=== PATIENT | female | born 1990 | race Caucasian/White ===

== ENCOUNTER 2017-07-16 16:04 | Emergency (ER) | payer OTHER ==
[2017-07-16 16:12] VITALS: BP 138/94; PULSE 92; RESP 16; TEMP 98.2
--- NOTE | 2017-07-16 17:55 | US ---
EXAMINATION TYPE: US venous doppler duplex LE RT DATE OF EXAM: 07/16/2017 5:32 PM COMPARISON: NONE CLINICAL HISTORY: Pain. Lump posterior right thigh. SIDE PERFORMED: Right TECHNIQUE: The lower extremity deep venous system is examined utilizing real time linear array sonog jennifer with graded compression, doppler sonography and color-flow sonography. VESSELS IMAGED: External Iliac Vein (EIV) Common Femoral Vein Deep Femoral Vein Greater Saphenous Vein * Femoral Vein Popliteal Vein Small Saphenous Vein * Proximal Calf Veins (* superficial vessels) Right Leg: Negative for DVT No evidence of DVT right leg. No abnormalities seen posterior right thigh area of lump. IMPRESSION: 1. Right lower extremities negative for deep venous thrombosis by ultrasound.
--- NOTE | 2017-07-16 17:57 | ED ---
General Adult HPI - General Chief complaint: Skin/Abscess/Foreign Body Stated complaint: Lump on Leg/Numbess/Redness Time Seen by Provider: 07/16/17 16:54 Source: patient Mode of arrival: ambulatory Limitations: no limitations - History of Present Illness Initial comments: 26-year-old female patient presents to the emergency department today for evaluation of tingling in her right leg and toes as well as a "lump" to her posterior thigh. Patient states that she felt a lump there for the last few days. States that today she started having tingling down her leg so she became concerned. She denies any numbness or weakness to the leg. She states that she does have some chronic low back pain but there have been no changes. She denies any saddle anesthesia or loss of bowel or bladder control. She denies any pain at the area of the lump. Denies any redness or swelling. She denies any use of control or recent travel. She denies any chest pain, palpitations, or shortness of breath. Patient denies any recent rash, fever, chills, chest pain, abdominal pain, nausea, vomiting, diarrhea, constipation, back pain, numbness, tingling, dizziness, weakness, hematuria, dysuria, urinary urgency, urinary frequency, headache, visual changes, or any other complaints. - Related Data Home Medications Medication Instructions Recorded Confirmed Albuterol Inhaler [Ventolin Hfa 1 - 2 puff INHALATION Q6HR PRN 07/05/15 08/17/15 Inhaler] Pnv,Calcium 72/Iron/Folic Acid 1 tab PO DAILY 07/29/15 08/17/15 [ Plus Tablet] Previous Rx's Medication Instructions Recorded Acetaminophen-Codeine 300-30mg 1 each PO Q4HR PRN #30 tab 08/19/15 [Tylenol w/codeine #3] Ibuprofen [Motrin] 600 mg PO Q6HR PRN #60 tab 08/19/15 Allergies Allergy/AdvReac Type Severity Reaction Status Date / Time No Known Allergies Allergy Verified 07/16/17 16:12 Review of Systems ROS Statement: Those systems with pertinent positive or pertinent negative responses have been documented in the HPI. ROS Other: All systems not noted in ROS Statement are negative. Past Medical History Past Medical History: Asthma History of Any Multi-Drug Resistant Organisms: None Reported Past Surgical History: No Surgical Hx Reported Past Anesthesia/Blood Transfusion Reactions: No Reported Reaction Past Psychological History: Anxiety, Depression Smoking Status: Former smoker Past Alcohol Use History: Rare Past Drug Use History: None Reported - Past Family History Father Family Medical History: No Reported History General Exam Limitations: no limitations General appearance: alert, in no apparent distress, other Eye exam: Present: normal appearance (This is a well-developed, well-nourished adult female patient in no acute distress. Vital signs upon presentation are temperature 98.2F, pulse 92, respirations 16, blood pressure 138/94, pulse ox 100% on room air.), PERRL, EOMI. Absent: scleral icterus, conjunctival injection, periorbital swelling ENT exam: Present: normal exam, normal oropharynx, mucous membranes moist Respiratory exam: Present: normal lung sounds bilaterally. Absent: respiratory distress, wheezes, rales, rhonchi, stridor Cardiovascular Exam: Present: regular rate, normal rhythm, normal heart sounds. Absent: systolic murmur, diastolic murmur, rubs, gallop, clicks GI/Abdominal exam: Present: soft, normal bowel sounds. Absent: distended, tenderness, guarding, rebound, rigid Extremities exam: Present: normal inspection, full ROM, normal capillary refill , other (Small round mass noted to the right posterior thigh. No redness, no swelling, nontender. ). Absent: tenderness, pedal edema, joint swelling, calf tenderness Back exam: Present: normal inspection. Absent: vertebral tenderness Neurological exam: Present: alert, oriented X3, CN II-XII intact Psychiatric exam: Present: normal affect, normal mood Skin exam: Present: warm, dry, intact, normal color. Absent: rash Course Vital Signs 07/16/17 16:10 Temperature 98.2 F Pulse Rate 92 Respiratory 16 Rate Blood Pressure 138/94 O2 Sat by Pulse 100 Oximetry Medical Decision Making - Medical Decision Making 26 year-old female patient possessed to the emergency department today for evaluation of tingling to the right leg and a lump in her right posterior thigh. Physical examination did reveal a small rounded mass in the right posterior thigh. Neurovascular status is otherwise intact. Distal pulses are intact. Skin is pink, warm, and dry. Ultrasound was negative for DVT, did not find any abnormalities to the area of the mass. I did discuss findings with the patient. She is instructed to take anti-inflammatory medications and do low back stretches. She is instructed to follow-up with her primary care physician, she does have an appointment on Sunday, she is urged to keep this appointment. She is instructed to return here immediate for any new, worsening , or concerning symptoms. She verbalizes understanding and agrees with this plan. - Radiology Data Radiology results: report reviewed Ultrasound of the right lower extremity was performed, right leg is negative for DVT. No evidence of DVT in the right leg, no abnormalities seen in the posterior right thigh area. Impression by Dr. Barnes shows right lower extremity negative for deep venous thrombosis by ultrasound. Disposition Clinical Impression: Right leg paresthesias Disposition: HOME SELF-CARE Condition: Good Instructions: Paresthesia (ED), Soft Tissue Mass (ED) Additional Instructions: Take anti-inflammatory pain medication and perform lower back stretching to help relieve symptoms. Follow-up with her doctor she have planned. Return here immediately for any new, worsening, or concerning symptoms. Referrals: Layla Burdick MD [Primary Care Provider] - 1-2 days Time of Disposition: 18:04
== END 2017-07-16 18:11 | disposition home or self-care (01) ==
LOC: EC 16:04
DX: R20.2 Paresthesia of skin (principal); R22.9 Localized swelling, mass and lump, unspecified; M54.5 Low back pain; G89.29 Other chronic pain; Z87.891 Personal history of nicotine dependence
CPT/HCPCS: 99284

== ENCOUNTER → 2020-01-20 | Outpatient (CLI) | payer OTHER ==
--- NOTE | 2020-01-21 08:13 | US ---
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 TECHNIQUE: Multiple sonographic images of the thyroid gland are obtained. FINDINGS: GLAND SIZE: Right Lobe: 5.9 x 1.6 x 1.6 cm Overall Parenchyma: heterogenous Left Lobe: 5.3 x 1.6 x 1.6 cm Overall Parenchyma: heterogeneous Isthmus Thickness: 0.4 cm NODULES RIGHT: # of nodules measured on right: 0 LEFT: # of nodules measured on left: 0 ISTHMUS: # of nodules measured in the isthmus: 0 Gland is diffusely heterogeneous bilaterally. Mildly thickened lymph node noted left lateral neck measures 2.4 x 1.0 cm. Follow-up can be performed . IMPRESSION: Thyromegaly with heterogeneous parenchyma. No discrete nodule. Consider goiter or diffuse thyroiditis . Mildly thickened lymph node laterally in the left neck measures 2.4 x 1.0 cm. Correlate with physical exam findings. If palpable, clinical follow-up can be performed. If nonpalpable, follow-up ultrasoun d in 6-8 weeks can be performed.
== END | disposition home or self-care (01) ==
LOC: RADUSWWP 16:27
PROVIDERS: ATTEND Internal Medicine
DX: E01.0 Iodine-deficiency related diffuse (endemic) goiter (principal); I89.8 Other specified noninfective disorders of lymphatic vessels and lymph nodes
CPT/HCPCS: 76536

== ENCOUNTER → 2020-04-06 | Outpatient (CLI) | payer OTHER ==
--- NOTE | 2020-04-06 17:32 | US ---
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 TECHNIQUE: Multiple sonographic images of the thyroid gland are obtained. FINDINGS: GLAND SIZE: Right Lobe: 5.8 x 1.6 x 1.4 cm Overall Parenchyma: heterogenous Left Lobe: 4.8 x 1.1 x 1.3 cm Overall Parenchyma: heterogeneous Isthmus Thickness: 0.6 cm NODULES RIGHT: # of nodules measured on right: 0 LEFT: # of nodules measured on left: 0 ISTHMUS: # of nodules measured in the isthmus: 0 Bilateral neck scanned, left lateral neck shows hypoechoic oval structure measuring 2.3 x 0.9 x 1.2cm IMPRESSION: 1. Borderline to mild thyromegaly with heterogeneous parenchyma. Consider goiter or diffuse thyroidit is. 2. No diffuse nodule. 3. A borderline sized lymph node within the left lateral neck measuring 1.2 cm short axis. Correlate for any palpable abnormality. Probably reactive/post inflammatory. This finding can be followed clini cali and also on follow-up ultrasound.
== END | disposition home or self-care (01) ==
LOC: RADUSWWP 14:17
PROVIDERS: ATTEND Internal Medicine
DX: E01.0 Iodine-deficiency related diffuse (endemic) goiter (principal)
CPT/HCPCS: 76536